=== PATIENT | male | born 1995 | race Caucasian/White ===

== ENCOUNTER 2016-11-14 17:52 | Emergency (ER) | payer OTHER ==
[~2016-11-14] VITALS: Ht 180.3 cm; Wt 71.7 kg
[2016-11-14 18:01] VITALS: TEMP 36.7; Ht 180.3 cm; Wt 71.7 kg
[2016-11-14] MEDS ORDERED: PROPARACAINE HCL 0.5% OP SOLN 15 ML BTL OP STA (18:25)
[2016-11-14] MEDS ORDERED: CIPROFLOXACIN HCL 0.3% OP SOLN 2.5 ML BTL OP STA (19:00)
[2016-11-14 19:24] VITALS: BP 124/75; PULSE 72; O2SAT 100
--- NOTE | 2016-11-14 23:54 | EMERGENCY ROOM VISIT NOTE ---
History First contact with patient: 18:23 Chief Complaint: EYE ASSESSMENT Stated Complaint: IRRITATION IN LEFT EYE History of Present Illness The patient is a 20 year old male who presents to the Emergency Room with complaints of persistent left eye discomfort. The patient reports that he was walking through town last night when the wind blew something into his eye. The patient does report rubbing the eye. He did irrigate the eye with water at home. He reports mild blurred vision. He denies any headaches, runny nose, sinus congestion or sore throat. He rates his discomfort a 5 out of 10. Tetanus immunization is up-to-date. Review of Systems 10 system review was performed and was negative except for pertinent positives and negatives as indicated in history of present illness Past Medical/Surgical History Medical Problems: (1) No Known Active Medical Problems Family History Unremarkable Social History Smoking Status: Never Smoker Marital Status: single Housing Status: lives with roommate Occupation Status: [employer] student Current/Historical Medications No Active Prescriptions or Reported Meds Allergies Coded Allergies: NSAIDs (Unverified Allergy, Intermediate, MILD THROAT SWELLING/IRRITATION , 11/14/16) Physical Exam Vital Signs Date Time Temp Pulse Resp B/P Pulse Ox O2 Delivery O2 Flow Rate FiO2 11/14/16 19:24 72 20 124/75 100 11/14/16 18:01 36.7 79 18 124/85 95 Room Air Right Eye Acuity: 20/30 Left Eye Acuity: 20/40 Pain Rating (0-10): 4.0 Physical Exam CONSTITUTIONAL: Healthy and well nourished. Alert and oriented X 3 with positive affect. HEENT: Examination of the left eye shows mild conjunctival injection without mucopurulent drainage. EOMs intact. Patient is mildly photophobic. OROPHARYNX: No posterior pharyngeal erythema, postnasal drip or tonsillar hypertrophy. NECK: Full active range of motion without discomfort. INTEGUMENTARY: No rash or other significant dermatologic conditions noted. NEUROLOGIC: No focal neurologic deficits noted. Medical Decision & Procedures Medications Administered Medications (Trade) Dose Ordered Sig/Jean Route Start Time Stop Time Status Last Admin Dose Admin Ciprofloxacin HCl (Ciprofloxacin 0.3% Op Soln) 2 drops NOW STAT OP 11/14/16 19:00 11/14/16 19:01 DC 11/14/16 19:22 2 DROPS Procedure Slit lamp and fluorescein exam were performed after using 2 drops of Alcaine. This completely resolved the patient's discomfort. Examination shows a central corneal abrasion. Negative hyphema. Fluorescein exam is not show any significant depth to this abrasion. Negative skate rink sign. ED Course Patient history and physical exam were performed. Nurse's notes were reviewed. Slit lamp and fluorescein exam shows a central corneal abrasion. The patient was dispensed Ciloxan ophthalmic solution, and instructions for its use. He was encouraged to alternate ibuprofen and Tylenol as needed for pain, and use an ice pack/sunglasses as needed. The patient was instructed to follow-up with ophthalmology if symptoms have not improved within the next 36-48 hours. Return to the emergency department over the weekend as needed. The patient was happy with plan of care, voiced understanding of all discharge instructions, and denied any discomfort at the conclusion of my exam. Medical Decision Impression Primary Impression: Left corneal abrasion Departure Information Dispostion Home / Self-Care Condition GOOD Prescriptions No Active Prescriptions or Reported Meds Referrals Rosalino Naylor M.D. Forms HOME CARE DOCUMENTATION FORM, IMPORTANT VISIT INFORMATION Patient Instructions My [facility] Additional Instructions 2 antibiotic eyedrops every 4-6 hrs (while awake) for 4-5 days. Tylenol 1000 mg every 6-8 hours as needed for pain. You may also intermittently apply a cool compress and wear sunglasses for additional relief. Follow-up with an frame pulley mortising machine operator (Dr. Welch) if no improvement within 24- 48 hrs. Problem Qualifiers Primary Impression: Left corneal abrasion Encounter type: initial encounter Qualified Codes: S05.02XA - Injury of conjunctiva and corneal abrasion without foreign body, left eye, initial encounter
== END 2016-11-14 19:25 | disposition home or self-care (01) ==
LOC: C.EDB 17:53 → C.EDD 19:25
DX: S05.02XA Injury of conjunctiva and corneal abrasion without foreign body, left eye, initial encounter (principal); X58.XXXA Exposure to other specified factors, initial encounter; Y92.89 Other specified places as the place of occurrence of the external cause